=== PATIENT | female | born 1995 | race African-American/Black ===

== ENCOUNTER 2017-11-09 09:59 | Emergency (ER) | payer OTHER ==
[~2017-11-09] VITALS: Ht 99.1 cm; Wt 77.3 kg
[2017-11-09 10:00] VITALS: TEMP 97.8
[2017-11-09 12:00] VITALS: BP 104/68; PULSE 82
== END 2017-11-09 12:15 | disposition home or self-care (01) ==
LOC: COL.ER 09:59
DX: T81.31XA Disruption of external operation (surgical) wound, not elsewhere classified, initial encounter (principal); R51 Headache; F17.210 Nicotine dependence, cigarettes, uncomplicated; Z98.890 Other specified postprocedural states; V49.9XXA Car occupant (driver) (passenger) injured in unspecified traffic accident, initial encounter
CPT/HCPCS: J1885

== ENCOUNTER → 2020-07-25 | Outpatient (CLI) | payer OTHER | LOC: COL.RAD 09:47 | DX: G43.109 Migraine with aura, not intractable, without status migrainosus (principal); F07.81 Postconcussional syndrome ==